=== PATIENT | male | born 1980 | race African-American/Black ===

== ENCOUNTER 2016-09-11 14:46 | Emergency (ER) | payer BC ==
--- NOTE | ~2016-09-11 | EKG ---
PATIENT: THOMAS VALLE UNIT #: [id number] Ventricular Rate: 113 BPM Atrial Rate: 113 BPM P-R Interval: 156 ms QRS Duration: 78 ms Q-T Interval: 348 ms QTC Calculation(Bezet): 477 ms P [place]: 47 degrees Calculated R [place]: 68 degrees Calculated T [place]: 25 degrees Diagnosis Line: Sinus tachycardia with Fusion complexes Diagnosis Line: Otherwise normal ECG Diagnosis Line: When compared with ECG of 09-MAR-2013 18:14, Diagnosis Line: Fusion complexes are now Present Diagnosis Line: Confirmed by KELLEN CHRIS MD ([id number]) on 09/13/2016 Diagnosis Line: 6:02:24 PM Diagnosis Line: Also confirmed by KELLEN CHRIS MD ([id number]) on Diagnosis Line: 09/13/2016 6:02:47 PM INTERPRETING MD: ARIES MONDRAGON
--- NOTE | ~2016-09-11 | CR72 ---
[facility]. [facility] A Service of [facility] & [facility] RADIOLOGY TEXT RESULTS PATIENT: THOMAS VALLE LOCATION: SED : 78 UNIT #: [id number] AGE: [address]: Neeraj Ervin MD SEX: M ORDER DR: [id number] [place] [id number] E MR#: [id number] Acc #: [id number] NAME: THOMAS VALLE : 1980 SEX: M STUDY DATE/TIME: 09/11/2016 14:43 UNIT: SED ROOM: STUDY DESCRIPTION: CR Chest Single View Portable Attending Physician: Neeraj Ervin M.D. Ordering Physician: Neeraj Ervin M.D. MEDICAL IMAGING REPORT This report is preliminary unless electronic signature is present. EXAM Portable chest INDICATIONS Chest pain 1 hour prior to arrival today. TECHNIQUE Frontal view chest. COMPARISON 03/09/2013 FINDINGS Heart size is unchanged. Lungs are clear. No pleural fluid. No pneumothorax. IMPRESSION New active process. Dictated by... René Hay M.D. THIS IS AN ELECTRONICALLY VERIFIED REPORT René Hay M.D. at 09/13/2016 6:59 AM EED/pcl TD: 09/11/2016 17:11 JOB #: [id number] MEDICAL IMAGING REPORT
--- NOTE | ~2016-09-11 | EKG ---
PATIENT: THOMAS VALLE UNIT #: [id number] Ventricular Rate: 113 BPM Atrial Rate: 113 BPM P-R Interval: 156 ms QRS Duration: 78 ms Q-T Interval: 348 ms QTC Calculation(Bezet): 477 ms P [place]: 47 degrees Calculated R [place]: 68 degrees Calculated T [place]: 25 degrees Diagnosis Line: Sinus tachycardia with Fusion complexes Diagnosis Line: Otherwise normal ECG Diagnosis Line: When compared with ECG of 09-MAR-2013 18:14, Diagnosis Line: Fusion complexes are now Present Diagnosis Line: Confirmed by KELLEN CHRIS MD ([id number]) on 09/13/2016 Diagnosis Line: 6:02:24 PM INTERPRETING MD: ARIES MONDRAGON
[~2016-09-11 14:46] MED LIST: AMOXICILLIN500 M1 PO; ASPIRIN BUFFER325 M1 PO; BACTRIM DS TABL1 TA1 PO; BENZONATATE PO; CLOTRIM ANTIFUN15 G1 TP; DOXYCYCLINE PO; GLUCOPHAGE500 M1 PO; GLUCOTROL XL PO; GLUCOTROL XL10 MG PO; HEART PILL; HYDROCORTISONE30 G2 TOP; KEFLEX500 MG PO; LISINOPRIL20 MG PO; LOPRESSOR PO; LOTENSIN20 MG PO; METFORMIN HCL500 M1 PO; METOPROL PO; NO MEDICATIONS; PERCOCET10 PO; PHENERGAN VC W120 M1 PO; PREDNISONE50 MG PO; VIBRAMYCIN100 M1 PO; VICODIN 5/1 TAB 5/50 PO; VISTARIL PO; ZYRTEC PO; [UNRECOGNIZED DRUG - REMARK]
[2016-09-11 14:49] LABS: BASOPHIL# 0.6 X10e3 (0.0-0.3); EOSINOPHIL% 0.3 % (0.0-7.0); HEMATOCRIT 54.3 % (38.0-50.0); HEMOGLOBIN 17.6 gm/dl (13.0-17.0); LYMPHOCYTE# 2.4 X10e3 (1.0-3.5); MEAN CELL VOLUME 80.2 FL (83-96); MEAN CORPUSCULAR HEMOGLOBIN 26.1 PG (28-34); MEAN CORPUSCULAR HGB CONC 32.5 g/dL (30-36); MEAN PLATELET VOLUME 9.1 FL (6.5-11.5); MONOCYTE# 0.6 X10e3 (0.0-1.0); MONOCYTE% 6.4 % (3.0-12.0); NEUTROPHIL# 5.7 X10e3 (1.5-7.1); NEUTROPHIL% 61.3 % (40.0-75.0); PLATELET COUNT 201 X10e3 (140-420); RED BLOOD COUNT 6.76 X10e6 (3.90-5.60); RED CELL DISTRIBUTION WIDTH 12.6 % (11.0-15.5); WHITE BLOOD COUNT 9.3 X10e3 (4.0-10.5)
[2016-09-11 14:52] LABS: POC - CKMB 1.3 ng/mL (0.0-7.9); POC - MYOGLOBIN 79.2 ng/mL (0.0-169.0); POC - TROPONIN <0.05 ng/mL (<=0.05)
[2016-09-11 14:55] LABS: DIFF IND NO
[2016-09-11 15:07] LABS: BLOOD UREA NITROGEN 7 mg/dL (9-23); BUN/CREATININE RATIO 8.75; CALCIUM SERUM 9.3 mg/dL (8.4-10.2); CARBON DIOXIDE 26 mmol/L (22-31); CHLORIDE 99 mmol/L (100-111); CREATININE SERUM 0.8 mg/dL (0.6-1.4); GLOM FILT RATE Estimated ABOVE60 mL/min (>60); GLUCOSE FASTING 371 mg/dL (70-110); POTASSIUM 3.5 mmol/L (3.5-5.1); SODIUM 136 mmol/L (135-145)
== END 2016-09-11 16:00 | disposition home or self-care (01) ==
LOC: SED 14:46
PROVIDERS: Emergency Medicine
DX: R07.89 Other chest pain (principal); I10 Essential (primary) hypertension; E11.65 Type 2 diabetes mellitus with hyperglycemia; F17.200 Nicotine dependence, unspecified, uncomplicated; Z86.79 Personal history of other diseases of the circulatory system
CPT/HCPCS: 36415; 71010; 80048; 82553; 83874; 84484; 85025; 93005; 96374; 99284